=== PATIENT | female | born 1985 | race Caucasian/White ===

== ENCOUNTER 2017-12-08 10:56 | Emergency (ER) | payer MEDICAID ==
[2017-12-08 11:18] LABS: Basophils # (Auto) 0.1 K/mm3 (0.0-0.1); Basophils % (Auto) 0.9 % (0.0-1.8); Eosinophils # (Auto) 0.2 K/mm3 (0.0-0.4); Eosinophils % (Auto) 2.4 % (0.0-4.3); Hematocrit 38.4 % (30.3-42.9); Hemoglobin 12.6 gm/dl (10.1-14.3); Lymphocytes # (Auto) 1.7 K/mm3 (1.2-5.4); Lymphocytes % (Auto) 18.4 % (13.4-35.0); Mean Corpuscular HGB Conc 33 % (30-34); Mean Corpuscular Hemoglobin 29 pg (28-32); Mean Corpuscular Volume 88 fl (79-97); Monocytes # (Auto) 0.6 K/mm3 (0.0-0.8); Monocytes % (Auto) 6.2 % (0.0-7.3); Platelet Count 303 K/mm3 (140-440); Red Blood Count 4.34 M/mm3 (3.65-5.03); Red Cell Distribution Width 12.9 % (13.2-15.2)
[2017-12-08 11:38] LABS: Alanine Aminotransferase 18 units/L (7-56); Albumin 4.4 g/dL (3.9-5); BUN/Creatinine Ratio 12; Blood Urea Nitrogen 6 mg/dL (7-17); Calcium 9.1 mg/dL (8.4-10.2); Hemolysis Index 5
--- NOTE | 2017-12-08 12:43 | Event Note ---
Date: 12/08/17 Received a call from the patient's protection manager, Dr. Wyman. Patient had an outpatient confirmed right-sided ectopic , 1.4 cm. Has a history of prior ectopic with left sided salpingectomy. Her protection manager recommends ABO/type, CBC, comprehensive metabolic panel. Recommends initiation of methotrexate, 50 mg/m, and indicated that her group would have the patient follow-up next week for further evaluation and management. Vital Signs 12/08/17 11:21 Temperature 98.6 F Pulse Rate 87 Respiratory 18 Rate Blood Pressure 117/70 O2 Sat by Pulse 99 Oximetry Lab Results 12/08/17 12/08/17 12/08/17 Range/Units 11:06 11:06 11:06 WBC 9.3 (4.5-11.0) K/mm3 RBC 4.34 (3.65-5.03) M/mm3 Hgb 12.6 (10.1-14.3) gm/dl Hct 38.4 (30.3-42.9) % MCV 88 (79-97) fl MCH 29 (28-32) pg MCHC 33 (30-34) % RDW 12.9 L (13.2-15.2) % Plt Count 303 (140-440) K/mm3 Lymph % (Auto) 18.4 (13.4-35.0) % Barnes % (Auto) 6.2 (0.0-7.3) % Eos % (Auto) 2.4 (0.0-4.3) % Baso % (Auto) 0.9 (0.0-1.8) % Lymph # 1.7 (1.2-5.4) K/mm3 Barnes # 0.6 (0.0-0.8) K/mm3 Eos # 0.2 (0.0-0.4) K/mm3 Baso # 0.1 (0.0-0.1) K/mm3 Seg Neutrophils % 72.1 H (40.0-70.0) % Seg Neutrophils # 6.7 (1.8-7.7) K/mm3 Sodium 137 (137-145) mmol/L Potassium 4.1 (3.6-5.0) mmol/L Chloride 104.1 (98-107) mmol/L Carbon Dioxide 22 (22-30) mmol/L Anion Gap 15 mmol/L BUN 6 L (7-17) mg/dL Creatinine 0.5 L (0.7-1.2) mg/dL Estimated GFR > 60 ml/min BUN/Creatinine Ratio 12 % Glucose 88 (65-100) mg/dL Calcium 9.1 (8.4-10.2) mg/dL Total Bilirubin 0.40 (0.1-1.2) mg/dL AST 19 (5-40) units/L ALT 18 (7-56) units/L Alkaline Phosphatase 53 (35-129) units/L Total Protein 7.7 (6.3-8.2) g/dL Albumin 4.4 (3.9-5) g/dL Albumin/Globulin Ratio 1.3 % HCG, Quant 5086 H (0-4) mIU/mL
--- NOTE | 2017-12-08 13:33 | Emergency Department Report ---
ED General Adult HPI - General Chief complaint: Recheck/Abnormal Lab/Rx Time Seen by Provider: 12/08/17 13:29 Source: patient Mode of arrival: Ambulatory Limitations: No Limitations - History of Present Illness Initial comments: Patient is a 32-year-old female who is presenting with suspected ectopic . Patient's Quant is in the 5000 range however there is no IUP seen according to the patient on her ultrasound. Patient was sent in by Dr. Pancho Chambers to have methotrexate after labs resulted. Patient's laboratory studies are within normal limits. Her liver enzymes are nl. Patient is having just some slight vaginal spotting but is in no pain. Patient's vital signs with all limits. - Related Data Home Medications Medication Instructions Recorded Confirmed Last Taken HYDROcodone/APAP 5-325 [[place] 1 each PO Q4HR PRN 01/09/15 01/15/16 01/11/15 5/325] Levothyroxine [Synthroid] 112 mcg PO QAM 01/09/15 01/15/16 2 Days Ago ~01/13/16 1 tab Previous Rx's Medication Instructions Recorded Last Taken Type Ondansetron [Zofran Odt] 4 mg PO Q4H PRN #15 tab.rapdis 01/09/15 01/11/15 Rx ALBUTEROL Inhaler (OR & NICU) 2 puff IH Q6HRT PRN #1 inha 01/16/15 Unknown Rx [ProAir HFA Inhaler] Ibuprofen [Motrin 800 MG tab] 800 mg PO Q8H PRN #40 tablet 01/16/15 Unknown Rx oxyCODONE /ACETAMINOPHEN [Percocet 2 tab PO Q4H PRN #40 tablet 01/16/15 Unknown Rx 5/325 mg] Acetaminophen/Codeine [Tylenol #3] 1 tab PO Q4HR PRN #40 tablet 01/17/16 Unknown Rx Ibuprofen [Motrin 800 MG tab] 800 mg PO TID PRN #60 tablet 01/17/16 Unknown Rx Allergies Allergy/AdvReac Type Severity Reaction Status Date / Time Penicillins AdvReac Unknown Verified 01/09/15 14:31 ED Review of Systems ROS: Stated complaint: Other details as noted in HPI Comment: All other systems reviewed and negative ED Past Medical Hx - Past Medical History Previous Medical History?: Yes Hx Hypertension: No Hx Congestive Heart Failure: No Hx Diabetes: No Hx Deep Vein Thrombosis: No Hx Renal Disease: No Hx Sickle Cell Disease: No Hx Seizures: No Hx Asthma: Yes (last attack 6 month ago) Hx COPD: No Hx HIV: No Additional medical history: HYPOTHYROID. ECTOPIC previous right ectopic - Surgical History Past Surgical History?: Yes Additional Surgical History: GOITER REMOVED. X 2 - Social History Smoking Status: Never Smoker Substance Use Type: None - Medications Home Medications: Home Medications Medication Instructions Recorded Confirmed Last Taken Type HYDROcodone/APAP 5-325 [[place] 1 each PO Q4HR PRN 01/09/15 01/15/16 01/11/15 History 5/325] Levothyroxine [Synthroid] 112 mcg PO QAM 01/09/15 01/15/16 2 Days Ago History ~01/13/16 1 tab Ondansetron [Zofran Odt] 4 mg PO Q4H PRN #15 tab.rapdis 01/09/15 01/15/16 Rx ALBUTEROL Inhaler (OR & NICU) 2 puff IH Q6HRT PRN #1 inha 01/16/15 01/15/16 Unknown Rx [ProAir HFA Inhaler] Ibuprofen [Motrin 800 MG tab] 800 mg PO Q8H PRN #40 tablet 01/16/15 01/15/16 Unknown Rx oxyCODONE /ACETAMINOPHEN [Percocet 2 tab PO Q4H PRN #40 tablet 01/16/15 Unknown Rx 5/325 mg] Acetaminophen/Codeine [Tylenol #3] 1 tab PO Q4HR PRN #40 tablet 01/17/16 Unknown Rx Ibuprofen [Motrin 800 MG tab] 800 mg PO TID PRN #60 tablet 01/17/16 Unknown Rx ED Physical Exam - General Limitations: No Limitations General appearance: alert, in no apparent distress - Head Head exam: Present: atraumatic, normocephalic - Eye Eye exam: Present: normal appearance - ENT ENT exam: Present: mucous membranes moist - Neck Neck exam: Present: normal inspection - Respiratory Respiratory exam: Present: normal lung sounds bilaterally. Absent: respiratory distress - Cardiovascular Cardiovascular Exam: Present: regular rate, normal rhythm. Absent: systolic murmur, diastolic murmur, rubs, gallop - GI/Abdominal GI/Abdominal exam: Present: soft, normal bowel sounds - Extremities Exam Extremities exam: Present: normal inspection - Back Exam Back exam: Present: normal inspection - Neurological Exam Neurological exam: Present: alert, oriented X3 - Psychiatric Psychiatric exam: Present: normal affect, normal mood - Skin Skin exam: Present: warm, dry, intact, normal color. Absent: rash ED Course Vital Signs 12/08/17 11:21 Temperature 98.6 F Pulse Rate 87 Respiratory 18 Rate Blood Pressure 117/70 O2 Sat by Pulse 99 Oximetry ED Medical Decision Making - Lab Data Result diagrams: 12/08/17 11:06 12/08/17 11:06 Lab Results 12/08/17 12/08/17 12/08/17 Range/Units 11:06 11:06 11:06 WBC 9.3 (4.5-11.0) K/mm3 RBC 4.34 (3.65-5.03) M/mm3 Hgb 12.6 (10.1-14.3) gm/dl Hct 38.4 (30.3-42.9) % MCV 88 (79-97) fl MCH 29 (28-32) pg MCHC 33 (30-34) % RDW 12.9 L (13.2-15.2) % Plt Count 303 (140-440) K/mm3 Lymph % (Auto) 18.4 (13.4-35.0) % [place] % (Auto) 6.2 (0.0-7.3) % Eos % (Auto) 2.4 (0.0-4.3) % Baso % (Auto) 0.9 (0.0-1.8) % Lymph # 1.7 (1.2-5.4) K/mm3 [place] # 0.6 (0.0-0.8) K/mm3 Eos # 0.2 (0.0-0.4) K/mm3 Baso # 0.1 (0.0-0.1) K/mm3 Seg Neutrophils % 72.1 H (40.0-70.0) % Seg Neutrophils # 6.7 (1.8-7.7) K/mm3 Sodium 137 (137-145) mmol/L Potassium 4.1 (3.6-5.0) mmol/L Chloride 104.1 (98-107) mmol/L Carbon Dioxide 22 (22-30) mmol/L Anion Gap 15 mmol/L BUN 6 L (7-17) mg/dL Creatinine 0.5 L (0.7-1.2) mg/dL Estimated GFR > 60 ml/min BUN/Creatinine Ratio 12 % Glucose 88 (65-100) mg/dL Calcium 9.1 (8.4-10.2) mg/dL Total Bilirubin 0.40 (0.1-1.2) mg/dL AST 19 (5-40) units/L ALT 18 (7-56) units/L Alkaline Phosphatase 53 (35-129) units/L Total Protein 7.7 (6.3-8.2) g/dL Albumin 4.4 (3.9-5) g/dL Albumin/Globulin Ratio 1.3 % HCG, Quant 5086 H (0-4) mIU/mL Critical care attestation.: If time is entered above; I have spent that time in minutes in the direct care of this critically ill patient, excluding procedure time. ED Disposition Clinical Impression: Encounter for assessment for suspected ectopic Disposition: DC- TO HOME OR SELFCARE Is pt being admited?: No Does the pt Need Aspirin: No Condition: Stable Referrals: MARIA ELENA ROTHMAN MD [Primary Care Provider] - 3-5 Days Time of Disposition: 13:33
[2017-12-08 14:17] VITALS: BP 132/72
== END 2017-12-08 14:16 | disposition home or self-care (01) ==
LOC: ED 10:56 → EDSTATUS 11:01 → ED 14:16
DX: O00.90 Unspecified ectopic pregnancy without intrauterine pregnancy (principal); J45.909 Unspecified asthma, uncomplicated; Z88.0 Allergy status to penicillin; E03.9 Hypothyroidism, unspecified
CPT/HCPCS: 36415; 80053; 84702; 85025; 96372; 99283; J9260

== ENCOUNTER 2017-12-10 19:32 | Emergency (ER) | payer MEDICAID ==
[2017-12-10 19:56] VITALS: BP 125/88
== END 2017-12-10 20:30 | disposition left against medical advice (07) ==
LOC: ED 19:32
DX: N93.9 Abnormal uterine and vaginal bleeding, unspecified (principal); Z53.21 Procedure and treatment not carried out due to patient leaving prior to being seen by health care provider